=== PATIENT | female | born 1980 | race African-American/Black ===

== ENCOUNTER 2017-12-08 13:01 | Emergency (ER) | payer OTHER ==
--- NOTE | 2017-12-08 13:35 | EDM.PDOC ---
ED HPI GENERAL MEDICAL PROBLEM - General Chief Complaint: Lower Extremity Injury/Pain Stated Complaint: FELL ON ICE, LT KNEE PAIN Time Seen by Provider: 12/08/17 13:07 - History of Present Illness INITIAL COMMENTS - FREE TEXT/NARRATIVE: HISTORY AND PHYSICAL: History of present illness: Patient is a 37-year-old black female presents one day status post fall when she injured her left knee when she fell on the ice she denies other trauma or concern Review of systems: As per history of present illness and below otherwise all systems reviewed and negative. Past medical history: As per history of present illness and as reviewed below otherwise noncontributory. Surgical history: As per history of present illness and as reviewed below otherwise noncontributory. Social history: No reported history of drug or alcohol abuse. Family history: As per history of present illness and as reviewed below otherwise noncontributory. Physical exam: HEENT: Atraumatic, normocephalic, pupils reactive, negative for conjunctival pallor or scleral icterus, mucous membranes moist, throat clear, neck supple, nontender, trachea midline. Lungs: Clear to auscultation, breath sounds equal bilaterally, chest nontender. Heart: S1S2, regular, negative for clicks, rubs, or JVD. Abdomen: Soft, nondistended, nontender. Negative for masses or hepatosplenomegaly. Negative for costovertebral tenderness. Pelvis: Stable nontender. Genitourinary: Deferred. Rectal: Deferred. Extremities: Tenderness noted over the anterior aspect of her knee there is no crepitation or point tenderness there does appear to be a posttraumatic effusion there is limited range of motion secondary to pain but no gross instability of the joint CMS and neurovascular exam are unremarkable Neuro: Awake, alert, oriented. Cranial nerves II through XII unremarkable. Cerebellum unremarkable. Motor and sensory unremarkable throughout. Exam nonfocal. Diagnostics: X-ray left knee Therapeutics: Knee immobilizer crutches Impression: #1 acute left knee injury with posttraumatic effusion Definitive disposition and diagnosis as appropriate pending reevaluation and review of above. left knee Pain Score (Numeric/FACES): 8 - Related Data Allergies Allergy/AdvReac Type Severity Reaction Status Date / Time No Known Allergies Allergy Verified 12/08/17 13:08 Home Meds: Home Meds . [No Known Home Meds] 12/08/17 [History] Past Medical History HAND BLOCKER History: Reports: Other (See Below) - Infectious Disease History Infectious Disease History: Reports: Chicken Pox Social & Family History - Family History Family Medical History: Noncontributory - Tobacco Use Smoking Status *Q: Never Smoker - Recreational Drug Use Recreational Drug Use: No Review of Systems - Review of Systems Review Of Systems: ROS reveals no pertinent complaints other than HPI. ED EXAM, GENERAL - Physical Exam Exam: See Below (See dictation) Course - Vital Signs Last Recorded V/S: Last Vital Signs Temp 36.6 C 12/08/17 13:08 Pulse 77 12/08/17 13:08 Resp 18 12/08/17 13:08 BP 121/57 L 12/08/17 13:08 Pulse Ox 98 12/08/17 13:08 - Orders/Labs/Meds Orders: Active Orders 24 hr Category Date Time Status Knee 3V Lt [CR] Stat Exams 12/08/17 13:11 Taken Departure - Departure Time of Disposition: 14:09 Disposition: Home, Self-Care 01 Condition: Good Clinical Impression: Knee injury - Discharge Information Referrals: PCP,None [Primary Care Provider] - Forms: ED Department Discharge Additional Instructions: The following information is given to patients seen in the emergency department who are being discharged to home. This information is to outline your options for follow-up care. We provide all patients seen in our emergency department with a follow-up referral. The need for follow-up, as well as the timing and circumstances, are variable depending upon the specifics of your emergency department visit. If you don't have a primary care physician on staff, we will provide you with a referral. We always advise you to contact your personal physician following an emergency department visit to inform them of the circumstance of the visit and for follow-up with them and/or the need for any referrals to a consulting specialist. The emergency department will also refer you to a specialist when appropriate. This referral assures that you have the opportunity for followup care with a specialist. All of these measure are taken in an effort to provide you with optimal care, which includes your followup. Under all circumstances we always encourage you to contact your private physician who remains a resource for coordinating your care. When calling for followup care, please make the office aware that this follow-up is from your recent emergency room visit. If for any reason you are refused follow-up, please contact the [facility] emergency department at and asked to speak to the emergency department charge nurse. CEM [facility] [address], [address] [place] [address] Follow-up orthopedic clinic call schedule routine appointment immobilizer crutches as directed Motrin/Tylenol as directed - My Orders Last 24 Hours: My Active Orders 12/08/17 13:11 Knee 3V Lt [CR] Stat - Assessment/Plan Last 24 Hours: My Active Orders 12/08/17 13:11 Knee 3V Lt [CR] Stat
--- NOTE | 2017-12-09 18:29 | CR ---
EXAM DATE: 12/08/17 PATIENT'S AGE: 37 Patient: CHERISE MCCLELLAN Facility: [place], [place] Site . Site : 1980 Study: XRay Knee Left [id number] 1:37:37 PM Ordering Physician: Josesito Thompson Final Report: INDICATION: Pain. Fall. TECHNIQUE: Three views left knee. FINDINGS: Moderate degenerative arthritis left knee with mild to moderate medial compartment and patellofemoral compartment narrowing and moderately prominent hypertrophic change. No acute fracture or dislocation left knee. At least small size left knee effusion. Lucency involving the left proximal tibia laterally is fairly indistinct and does not have the typical appearance of a fracture. Remainder negative. Dictated by Watson Rebollar MD @ Dec 08 2017 1:58PM (Electronic Signature) Report Signed by Proxy. LINDA
== END 2017-12-08 14:31 | disposition home or self-care (01) ==
LOC: MW.ED 13:01
DX: S89.92XA Unspecified injury of left lower leg, initial encounter (principal); W00.0XXA Fall on same level due to ice and snow, initial encounter
CPT/HCPCS: 73562-26-LT; 73562-LT; 99283

== ENCOUNTER 2019-06-10 17:53 | Emergency (ER) | payer OTHER | END 2019-06-10 18:58 | disposition left against medical advice (07) | LOC: MW.ED 17:53 | DX: Z53.21 Procedure and treatment not carried out due to patient leaving prior to being seen by health care provider (principal) ==